=== PATIENT | female | born 1960 | race Caucasian/White ===

== ENCOUNTER 2017-05-02 09:49 | Emergency (ER) | payer OTHER ==
--- NOTE | 2017-05-02 09:54 | PDOC ---
History of Present Illness - General Chief Complaint: Psychiatric Stated Complaint: PANIC ATTACK Time Seen by Provider: 05/02/17 09:52 History Source: Patient - History of Present Illness Initial Comments: 05/02/17 12:49 Patient is a 56 y.o. female who presents via EMS for a pre-syncopal feeling and generalized anxiety. Patient states she was at the store when she felt anxious and decided to call EMS. Patient denies any lightheadedness, palpitation, chest pain or shortness of breath. Patient does endorse significant anxiety surrounding a recent [place] Patient was evaluated and hospitalized at [facility] at which time she was started on Klonopin and [place]. Patient states she took the Klonipin but ran out 10 days previous but did not take the [place]. Patient notes she had follow-up appointment with psychiatry at [facility], however she was unable to attend the appointment due to returning to the [place] intermittently to care for her father. Past History - Past Medical History Allergies/Adverse Reactions: Allergies Allergy/AdvReac Type Severity Reaction Status Date / Time No Known Allergies Allergy Verified 05/02/17 10:40 Home Medications: Ambulatory Orders Alprazolam [Xanax] 0.25 mg PO Q12H #14 tablet MDD 2 tablets 05/02/17 Review of Systems - Review of Systems Constitutional: No: Chills, Fever Respiratory: No: Cough, Shortness of Breath Cardiac (ROS): No: Chest Pain ABD/GI: No: Constipated, Diarrhea, Nausea, Vomiting Psychiatric: Yes: Anxiety, Depression, Frequent Crying, Stressors All Other Systems: Reviewed and Negative *Physical Exam - Physical Exam General Appearance: Yes: Nourished, Appropriately Dressed Respiratory/Chest: positive: Lungs Clear Cardiovascular: positive: S1, S2 Neurologic: positive: special effects specialist II-XII NML intact, Fully Oriented, Alert, Normal Response, Other (depressed affect; ) ED Treatment Course - LABORATORY CBC & Chemistry Diagram: 05/02/17 11:58 05/02/17 11:58 Medical Decision Making - Medical Decision Making 05/02/17 12:55 Patient is a 56 y.o. female who presents with anxiety and seeking medication. PLAN: 1. CBC, CMP 05/02/17 13:04 Patient's CBC and CMP are normal and at this time patient is improved, ambulatory and understands her discharge instructions. Patient is discharged with a 7 day supply of Xanax (clinical decision to not continue Klonipin as there will be no follow-up) and instructed to follow-up with her previously referred doctors at [facility] including psychiatry and primary care. *DC/Admit/Observation/Transfer Diagnosis at time of Disposition: Anxiety - Discharge Dispostion Disposition: HOME Condition at time of disposition: Good Admit: No - Prescriptions Prescriptions: Alprazolam [Xanax] 0.25 mg PO Q12H #14 tablet MDD 2 tablets - Patient Instructions Additional Instructions: We have sent a 7 day prescription for Xanax to your pharmacy. Please return to the Emergency Department for any worsening or concerning symptoms. Please follow up with the referred primary care and psychiatric doctors.
[2017-05-02 10:42] VITALS: TEMP 98; BMI 30.9
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
[2017-05-02] MEDS ORDERED: SODIUM CHLORIDE 0.9% 1000 ML INFUS.BAG IV ONE (11:31)
[2017-05-02] MEDS ORDERED: ONDANSETRON 4 MG/2 ML VIAL IVPUSH ONE (11:31)
[2017-05-02] MEDS ORDERED: ONDANSETRON 4 MG/2 ML VIAL ONE (11:49)
[2017-05-02 12:11] LABS: EOSINOPHIL 0.8 % (0-4.5); MCH 29.5 pg (25.7-33.7); MCHC 33.5 g/dl (32.0-36.0); MEAN CELL VOLUME 87.9 fl (80-96); MEAN PLT VOLUME 9.2 fl (7.5-11.1); NEUTROPHILS 68.8 % (42.8-82.8); PLATELET COUNT 274 K/MM3 (134-434); RDW 14.9 % (11.6-15.6); WHITE BLOOD COUNT 10.2 K/mm3 (4.0-10.0)
[2017-05-02] MEDS ORDERED: ACETAMINOPHEN 325 MG TABLET (FP) PO ONE (12:15)
[2017-05-02] MEDS ORDERED: ALPRAZolam 0.25 MG TABLET PO ONE (12:15)
[2017-05-02] MEDS ORDERED: ALPRAZolam 0.25 MG TABLET ONE (12:16)
[2017-05-02] MEDS ORDERED: ACETAMINOPHEN 325 MG TABLET (FP) ONE (12:16)
[2017-05-02 12:43] LABS: ALBUMIN 4.1 g/dl (3.4-5.0); ANION GAP 13 (8-16); BILIRUBIN,TOTAL 0.4 mg/dL (0.2-1.0); CALCIUM 9.6 mg/dL (8.5-10.1); CO2 23 mmol/L (21-32); CREATININE 0.7 mg/dL (0.55-1.02); GLUCOSE,RANDOM 87 mg/dL (74-106); SGOT/AST 15 U/L (15-37); SGPT/ALT 20 U/L (12-78); TOT PROT 7.9 g/dl (6.4-8.2)
[2017-05-02 12:44] LABS: ALK PHOS 112 U/L (45-117); CPK 91 IU/L (26-192)
[2017-05-02 13:13] VITALS: BP 144/82; PULSE 79
== END 2017-05-02 13:13 | disposition home or self-care (01) ==
LOC: JER 09:49
DX: F41.1 Generalized anxiety disorder (principal)
CPT/HCPCS: 36415; 80053; 82550; 85025; 99284-25